=== PATIENT | female | born 1945 | race Caucasian/White ===

== ENCOUNTER 2023-10-11 17:17 | Emergency (ER) | payer MEDICARE ==
[2023-10-11] MEDS: Acetaminophen/HYDROcodone 325-5 MG Tab PO ONE (18:54)
== END 2023-10-11 21:00 | disposition home or self-care (01) ==
LOC: JD.ED 17:17
DX: M79.604 Pain in right leg (principal); C79.51 Secondary malignant neoplasm of bone; F17.210 Nicotine dependence, cigarettes, uncomplicated; I10 Essential (primary) hypertension; Z90.49 Acquired absence of other specified parts of digestive tract
CPT/HCPCS: 93971; 99283; A9270